=== PATIENT | male | born 1995 | race Caucasian/White ===

== ENCOUNTER 2018-03-26 23:35 | Emergency (ER) | payer OTHER ==
--- NOTE | 2018-03-27 00:01 | EDPHY ---
H & P Stated Complaint: l sided facial pain after dental work 2 week ago Time Seen by Provider: 03/27/18 00:08 HPI/ROS: HPI CHIEF COMPLAINT: Left-sided facial pain and headache. HISTORY OF PRESENT ILLNESS: This patient is a 22-year-old male, otherwise healthy does have a history of a traumatic brain injury and craniotomy due to his subdural. He presents emergency room left-sided sharp stabbing burning facial pain that comes and electrical shocks. He states he has been dealing with this for month. He initially thought it was his teeth and went to the dentist and had a bunch dental work done however the pain has not gotten better infected gotten worse. He complains of electrical shock down the left side of his face. He denies any neck pain or chest pain or shortness of breath denies fever, denies visual disturbance. He states when he noticed light air movement going over the left side of his face caused him great discomfort. If you touch left-sided is facing causes discomfort. Pain is currently 10/10 described as electrical shocking. Past Medical History: Traumatic brain injury with a subdural Past Surgical History: Craniotomy to drain the subdural Social History: Smokes tobacco daily, alcohol occasionally, works as a electrical and instrumentation mechanic lives in [place]. Family History: Noncontributory ROS REVIEW OF SYSTEMS: A comprehensive 10 point review of systems is otherwise negative aside from elements mentioned in the history of present illness. Exam Constitutional triage nursing summary reviewed, vital signs reviewed, awake/ alert. Eyes normal conjunctivae and sclera, EOMI, PERRLA. HENT head/face: When I palpate the left side of his face he complains of electrical shocking pain with light sensation, additionally his cranial nerves are intact, moist mucus membranes, no epistaxis, neck supple/ no meningismus, no raccoon eyes. Respiratory clear to auscultation bilaterally, normal breath sounds, no respiratory distress, no wheezing. Cardiovascular rate normal, regular rhythm, no murmur, no edema, distal pulses normal. Gastrointestinal soft, non-tender, no rebound, no guarding, normal bowel sounds, no distension, no pulsatile mass. Genitourinary no CVA tenderness. Musculoskeletal no midline vertebral tenderness, full range of motion, no calf swelling, no tenderness of extremities, no meningismus, good pulses, neurovascularly intact. Skin pink, warm, & dry, no rash, skin atraumatic. Neurologic cranial nerves intact occluding facial nerve, awake, alert and oriented x 3, AAOx3, moves all 4 extremities equally, motor intact, sensory intact, CN II-XII intact, normal cerebellar, normal vision, normal speech. Psychiatric normal mood/affect. Heme/Lymph/Immune no lymphadenopathy. Differential Diagnosis: Includes but is not limited to in a particular order trigeminal neuralgia, nerve pain, shingles, neuropathy, brain tumor, intracranial bleed Medical Decision Making: Plan for this patient oral Ativan for anxiety and oral [place] for pain control, CT scan head without contrast due to severe left- sided headache and facial pain. Will rule out bleed or tumor. Re-evaluation: 0252: Patient re-evaluated this time is resting comfortably in the emergency room. He received 60 mg IM Toradol, distally 1 mg p. O. Ativan and additionally 1 [place]. This made his left-sided sharp stabbing electrical pain was face pretty much resolved. It is unclear to me that this pain is either trigeminal neuralgia versus dental referred pain. He did recently have dental work. I do recommend he has close follow-up with his dentist. Additionally I will give him a prescription for Tegretol to start, distally refer him to primary care as well as Neurology. His CT scan of his head did not show any acute issue. The reason why he had a CT scan of his head was significant left-sided facial and headache pain. His neurological exam is otherwise unremarkable. Cranial nerves intact. No facial asymmetry. No weakness. Recommend follow up closely with his primary care doctor/dentist/neurologist. He understands. Source: Patient - Personal History Current Tetanus/Diphtheria Vaccine: Yes Current Tetanus Diphtheria and Acellular Pertussis (TDAP): Yes - Medical/Surgical History Hx Asthma: No Hx Chronic Respiratory Disease: No Hx Diabetes: No Hx Cardiac Disease: No Hx Renal Disease: No Hx Cirrhosis: No Hx Alcoholism: No Hx HIV/AIDS: No Hx Splenectomy or Spleen Trauma: No Other PMH: tbi - Social History Smoking Status: Current every day smoker Constitutional: Initial Vital Signs Temperature (C) 36.8 C 03/26/18 23:51 Heart Rate 77 03/26/18 23:51 Respiratory Rate 26 H 03/26/18 23:51 Blood Pressure 124/86 H 03/26/18 23:51 O2 Sat (%) 99 03/26/18 23:51 O2 Delivery Mode Room Air Allergies/Adverse Reactions: No Known Allergies Allergy (Unverified 03/26/18 23:51) Home Medications: Medication Instructions Recorded carBAMazepine [Carbamazepine ER] 100 mg PO BID #30 tab.er.12h 03/27/18 Medical Decision Making - Data Points Medications Given: Discontinued Medications Hydrocodone Bitart/Acetaminophen ([place] 5/325) 1 tab PO EDNOW ONE Stop: 03/27/18 00:09 Last Admin: 03/27/18 00:10 Dose: 1 tab Ketorolac Tromethamine (Toradol) 60 mg IM EDNOW ONE Stop: 03/27/18 01:37 Last Admin: 03/27/18 01:41 Dose: 60 mg Lorazepam (Ativan) 1 mg PO EDNOW ONE Stop: 03/27/18 00:09 Last Admin: 03/27/18 00:10 Dose: 1 mg Departure - Departure Disposition: Home, Routine, Self-Care Clinical Impression: Facial pain Condition: Good Instructions: Trigeminal Neuralgia (ED) Referrals: [facility] [Outside] - As per Instructions Mariza Harmon MD [Medical Doctor] - As per Instructions Jose R Valdivia MD [Medical Doctor] - As per Instructions Prescriptions: carBAMazepine [Carbamazepine ER] 100 mg PO BID #30 tab.er.12h
[2018-03-27] MEDS ORDERED: HYDROCODONE/APAP 5/325 TAB PO ONE (00:08)
[2018-03-27] MEDS ORDERED: LORazepam 1 MG TAB PO ONE (00:08)
[2018-03-27] MEDS ORDERED: KETOROLAC 30 MG/1 ML SDV IM ONE (01:36)
[2018-03-27 03:01] VITALS: BP 143/66
== END 2018-03-27 03:01 | disposition home or self-care (01) ==
DX: R51 Headache (principal); F17.200 Nicotine dependence, unspecified, uncomplicated
CPT/HCPCS: J1885